=== PATIENT | female | born 1995 | race African-American/Black ===

== ENCOUNTER 2021-07-25 10:18 | Emergency (ER) | payer MEDICAID, OTHER ==
[~2021-07-25] VITALS: Ht 170.2 cm; Wt 91.0 kg
[2021-07-25] MEDS ORDERED: ACETAMINOPHEN 325MG TABLET PO ONE (10:45)
[2021-07-25 10:55] VITALS: BP 95/80
== END 2021-07-25 10:59 | disposition short-term general hospital (02) ==
LOC: ER 10:18
DX: S21.142A Puncture wound with foreign body of left front wall of thorax without penetration into thoracic cavity, initial encounter (principal); X93.XXXA Assault by handgun discharge, initial encounter; Y93.89 Activity, other specified; Y92.488 Other paved roadways as the place of occurrence of the external cause
CPT/HCPCS: 71045; 99291

== ENCOUNTER 2024-05-11 16:04 | Emergency (ER) | payer MEDICAID, OTHER ==
[~2024-05-11] VITALS: Ht 172.7 cm; Wt 91.0 kg
[2024-05-11 16:10] VITALS: O2SAT 98
[2024-05-11] MEDS: SODIUM CHLORIDE 0.9% 1,000 ML IV ONE (16:48)
[2024-05-11] MEDS: ONDANSETRON HCL 4MG/2ML INJ IV ONE (16:48)
[2024-05-11 16:58] LABS: BASOPHILS % 0.2 % (0.0-2.0); EOSINOPHILS % 0.2 % (0.0-5.0); HEMATOCRIT. 36.6 % (36.0-48.0); HEMOGLOBIN. 11.8 g/dL (12.0-16.0); LYMPHOCYTES % 14.5 % (20.0-50.0); MEAN CORPUSCULAR HEMOGLOBIN 27.2 pg (28.0-32.0); MEAN CORPUSCULAR HGB CONC 32.2 g/dL (31.0-37.0); MEAN CORPUSCULAR VOLUME 84.4 fL (81.0-99.0); MEAN PLATELET VOLUME 7.2 fl (7.4-10.4); MONOCYTES % 5.1 % (2.0-8.0); PLATELET 387 x1000/uL (130-400); RED BLOOD CELL COUNT 4.34 mill/uL (4.2-5.4); RED CELL DISTRIBUTION WIDTH 14.8 % (11.6-14.6); WHITE BLOOD COUNT 10.8 x1000/uL (4.5-11.0)
[2024-05-11] MEDS: PYRIDOXINE 100 MG/ML 1ML IV ONE (17:01)
[2024-05-11 17:05] LABS: CHLORIDE 104 mEq/L (98-107); POTASSIUM 5.6 mEq/L (3.5-5.1); SODIUM 133 mEq/L (136-145)
[2024-05-11 17:06] LABS: CALCIUM 8.6 mg/dL (8.7-10.4); CARBON DIOXIDE 22 mEq/L (21-32)
[2024-05-11 17:11] LABS: CREATININE 0.6 mg/dL (0.6-1.0); GLUCOSE 98 mg/dL (70-105)
[2024-05-11 17:16] LABS: UREA NITROGEN BLOOD < 5 mg/dL (9-23)
[2024-05-11 17:30] LABS: B-HCG QUANTITATIVE 16131 mIU/mL (<3)
[2024-05-11 18:03] VITALS: BP 126/78; PULSE 64; RESP 16; TEMP 98.2
[2024-05-11] MEDS: ACETAMINOPHEN 325MG TABLET PO ONE (19:05)
[2024-05-11 19:06] LABS: CLARITY URINE CLEAR (CLEAR); COLOR URINE YELLOW (YELLOW); GLUCOSE URINE NEGATIVE (NEGATIVE); KETONES URINE 1+ (NEGATIVE); LEUKOCYTE ESTERASE URINE NEGATIVE (NEGATIVE); NITRITE URINE NEGATIVE (NEGATIVE); OCCULT BLOOD URINE NEGATIVE (NEGATIVE); PH URINE 8.5 (4.5-8.0); PROTEIN URINE 1+ (NEGATIVE); SPECIFIC GRAVITY URINE 1.025 (1.005-1.030); UROBILINOGEN URINE 0.2 E.U./dL (0.2-1.0)
[2024-05-11] MEDS: FAMOTIDINE 20MG/2ML VIAL IV SCH (19:18)
[2024-05-11] MEDS: METOCLOPRAMIDE HCL 10MG/2ML VIAL IV ONE (19:18)
[2024-05-11 20:06] LABS: BACTERIA URINE 2+; RBC URINE 0-2 /hpf (0-2); SQUAMOUS EPITHELIAL CELL URINE 1+ /lpf (RARE/1+); WBC URINE 0-2 /hpf (0-2)
[2024-05-11] MEDS ORDERED: ONDA4TAB11 PO (20:11)
[2024-05-11] MEDS ORDERED: PREN1.4T2 MT (20:11)
[2024-05-11] MEDS ORDERED: PYRI50CA MT (20:11)
== END 2024-05-11 21:31 | disposition home or self-care (01) ==
LOC: ER 16:04
DX: O21.0 Mild hyperemesis gravidarum (principal); R10.2 Pelvic and perineal pain; Z3A.27 27 weeks gestation of pregnancy
CPT/HCPCS: 80048; 81003; 82010; 84702; 83690; 85025; 36415; 76805; 96361; 96374; 96375; 99285; J3490; J2765; J2405; J3415; J7030; Z7610 ×4